=== PATIENT | male | born 1995 | race Caucasian/White ===

== ENCOUNTER 2017-09-23 10:36 | Outpatient (CLI) | payer OTHER ==
[~2017-09-23 10:36] MED LIST: CEFUROXIME500 MG PO; MOTRIN IB200 MG; ORASEP SPRAY30 ML MM; PNEU16DI2; ROBITUSSIN COU118 M9
== END 2017-09-23 13:21 | disposition home or self-care (01) ==
LOC: RAD 10:36
DX: S82.892A Other fracture of left lower leg, initial encounter for closed fracture (principal)